=== PATIENT | female | born 1950 | race Caucasian/White ===

== ENCOUNTER 2017-11-30 10:11 | Observation (INO) ==
[2017-11-30] MEDS ORDERED: Sod Chloride 0.9% Inj 1,000 ML IV.CONT SCH (11:30)
--- NOTE | 2017-11-30 12:14 | ED ---
HPI General Chief Complaint: Neuro Symptoms/Deficit Stated Complaint: Left side of head complaint Time Seen by Provider: 11/30/17 11:24 Source: patient Mode of arrival: ambulatory Limitations: no limitations History of Present Illness HPI Narrative: Patient is a 67-year-old female that presents for the evaluation of left sided head pain and tingling. The patient states that the left side of her head began to ache and feel strange this past Thursday. The patient has a difficult time describing her symptoms. She states that the pain has been persistent the past 3 days. She states that the left side of her head began to tingle today and she now describes that she feels tingly and itchy all over. She states that nothing like this has ever happened to her before and she is concerned because her father from a stroke. Upon review of symptoms the patient reports fatigue which she states is due to her inability to sleep well this past week. She denies any other pain at this time. Pain is 4/10. Dull headache. Related Data Home Medications Medication Instructions Recorded Confirmed acyclovir 400 mg PO Q4H 11/30/17 11/30/17 hydrochlorothiazide 25 mg PO DAILY 11/30/17 11/30/17 losartan 25 mg PO DAILY 11/30/17 11/30/17 pantoprazole 40 mg PO DAILY 11/30/17 11/30/17 simvastatin 20 mg PO QPM 11/30/17 11/30/17 venlafaxine 75 mg PO DAILY 11/30/17 11/30/17 Allergies Allergy/AdvReac Type Severity Reaction Status Date / Time penicillin G Allergy Severe Rash Unverified 10/07/16 13:10 Sulfa (Sulfonamide Allergy Severe Rash Unverified 10/07/16 13:10 Antibiotics) Review of Systems ROS: all other systems reviewed are negative [facility] Medical History Medical History Dyslipidemia (Acute) Hypertension (Acute) Social History Social History Smoking Status: Unknown if ever smoked How Often Do You Have a Drink Containing Alcohol: Unable to Obtain Recent Travel in [facility] within the Last 8 Weeks: No Recent Out of Country Travel within the Last 8 Weeks: No Immunization History Tetanus Immunization: Unsure Exam Narrative Exam Narrative: GENERAL: SKIN: Warm and dry. HEAD: Atraumatic. Normocephalic. EYES: Pupils equal and round 4 mms reactive to light and accomodation. No scleral icterus. No injection or drainage. ENT: No nasal bleeding or discharge. Mucous membranes pink and moist. Tongue is midline. No uvula deviation. NECK: Trachea midline. No JVD. CARDIOVASCULAR: Regular rate and rhythm. RESPIRATORY: No accessory muscle use. Clear to auscultation. Breath sounds equal bilaterally. GASTROINTESTINAL: Abdomen soft, non-tender, nondistended. Hepatic and splenic margins not palpable. MUSCULOSKELETAL: Extremities without clubbing, cyanosis, or edema. No obvious deformities. Full ROM of the upper and lower extremities. Neurovascularly intact. 2+ pulses. 5/5 strength. NEUROLOGICAL: Awake and alert. No obvious cranial nerve deficits. Motor grossly within normal limits. Five out of 5 muscle strength in the arms and legs. Normal speech. PSYCHIATRIC: Appropriate mood and affect; insight and judgment normal. Course Initial Documented Vital Signs Temperature 97.8 F 11/30/17 11:07 Pulse Rate 73 11/30/17 11:07 Respiratory Rate 16 11/30/17 11:07 Blood Pressure 155/79 H 11/30/17 11:07 Pulse Oximetry 98 11/30/17 11:07 Last Documented Vital Signs Temperature 97.8 F 11/30/17 11:07 Pulse Rate 69 11/30/17 14:11 Respiratory Rate 20 11/30/17 14:11 Blood Pressure 144/67 H 11/30/17 14:11 Pulse Oximetry 99 11/30/17 14:11 Medical Decision Making TRUDI Attestation TRUDI supervised visit: Yes Attestation: I, Dr. Enriquez, have reviewed the advance practice practitioner's documentation and am in agreement, met with the patient face to face, made the diagnosis, and the medical decision making was done by me. *My assessment and Findings: Patient is a 67-year-old female who presented with complaint of left facial tingling with worsening numbness this morning. The tingling began approximately 3 days ago and has been worsening. She has no other neurologic deficits and would not be a candidate for TPA as the symptoms are very mild thus a stroke alert was not activated. She has been admitted to the hospital for further evaluation and management of TIA versus CVA with plan for MRI. MDM Narrative Medical decision making narrative: 67-year-old female that presents to the ED for evaluation of possible TIA versus CVA. Labs and imaging order. Symptoms have been ongoing since Thursday. My attending Dr Enriquez was made aware of findings and agrees with plan. Labs and imaging here showed no sign of acute disease at this time. Unclear etiology of the symptoms. Definetly concerning for CVA. Patient does have a significant history of CVA in the family. Condition at this time is admission for further evaluation of possible CVA versus TIA. Patient agrees with this. Case discussed with Dr. Leonel wilkins agrees admission to his service. My attending Dr. Enriquez evaluated the patient and agrees with plan. Medical Screen Exam Complete: Yes Emergency Medical Condition: Yes Differential Diagnosis Differential Diagnosis: CVA versus TIA versus ACS versus neuropathy Medical Records Medical records reviewed: Yes I reviewed the patient's medical records. Lab Data Lab results reviewed: Yes I reviewed the patient's lab results. Result diagrams: 11/30/17 11:45 11/30/17 11:45 Lab Results 11/30/17 11/30/17 11/30/17 Range/Units 11:45 11:45 11:45 WBC 4.3 (4.0-11.0) th/mm3 RBC 4.14 (4.00-5.30) mil/mm3 Hgb 13.7 (11.6-15.3) gm/dL Hct 40.5 (35.0-46.0) % MCV 97.9 (80.0-100.0) fL MCH 33.1 (27.0-34.0) pg MCHC 33.9 (32.0-36.0) % RDW 12.5 (11.6-17.2) % Plt Count 285 (150-450) th/mm3 MPV 7.6 (7.0-11.0) fL Neut % (Auto) 52.0 (16.0-70.0) % Lymph % (Auto) 38.4 (9.0-44.0) % [place] % (Auto) 8.2 H (0.0-8.0) % Eos % (Auto) 0.9 (0.0-4.0) % Baso % (Auto) 0.5 (0.0-2.0) % Neut # (Auto) 2.2 (1.8-7.7) th/mm3 Lymph # (Auto) 1.6 (1.0-4.8) th/mm3 [place] # (Auto) 0.4 (0.0-0.9) th/mm3 Eos # (Auto) 0.0 (0.0-0.4) th/mm3 Baso # (Auto) 0.0 (0.0-0.2) th/mm3 WBC Differential . Differential Comment Auto diff final PT 9.8 (9.8-11.6) sec INR 1.0 Ratio APTT 25.0 (24.3-30.1) sec Sodium 137 (136-145) meq/L Potassium 3.4 L (3.5-5.1) meq/L Chloride 98 (98-107) meq/L Carbon Dioxide 27.5 (21.0-32.0) meq/L Anion Gap 12 (5-15) meq/L BUN 17 (7-18) mg/dL Creatinine 0.69 (0.50-1.00) mg/dL Estimated GFR 85 L (>89) mL/min Random Glucose 86 (74-106) mg/dL Calcium 9.4 (8.5-10.1) mg/dL Total Creatine Kinase 65 (26-192) U/L Troponin I Less than 0.02 L (0.02-0.05) ng/mL Urine Color (Yellw/Straw) Urine Clarity (Clear) Urine pH (5.0-8.5) Ur Specific [place] (1.002-1.035) Urine Protein (Neg-Trace) mg/dL Urine Glucose (UA) (Negative) mg/dL Urine Ketones (Negative) mg/dL Urine Occult Blood (Negative) Urine Nitrate (Negative) Urine Bilirubin (Negative) Urine Urobilinogen (Less than 2) mg/dL Ur Leukocyte Esterase (Negative) Urine RBC (0-3) /hpf Urine WBC (0-5) /hpf Ur Squamous Epith Cells (0-5) /hpf Micro UA Comment Ur Microscopic Review Urine Culture Comments 11/30/17 Range/Units 11:45 WBC (4.0-11.0) th/mm3 RBC (4.00-5.30) mil/mm3 Hgb (11.6-15.3) gm/dL Hct (35.0-46.0) % MCV (80.0-100.0) fL MCH (27.0-34.0) pg MCHC (32.0-36.0) % RDW (11.6-17.2) % Plt Count (150-450) th/mm3 MPV (7.0-11.0) fL Neut % (Auto) (16.0-70.0) % Lymph % (Auto) (9.0-44.0) % [place] % (Auto) (0.0-8.0) % Eos % (Auto) (0.0-4.0) % Baso % (Auto) (0.0-2.0) % Neut # (Auto) (1.8-7.7) th/mm3 Lymph # (Auto) (1.0-4.8) th/mm3 [place] # (Auto) (0.0-0.9) th/mm3 Eos # (Auto) (0.0-0.4) th/mm3 Baso # (Auto) (0.0-0.2) th/mm3 WBC Differential Differential Comment PT (9.8-11.6) sec INR Ratio APTT (24.3-30.1) sec Sodium (136-145) meq/L Potassium (3.5-5.1) meq/L Chloride (98-107) meq/L Carbon Dioxide (21.0-32.0) meq/L Anion Gap (5-15) meq/L BUN (7-18) mg/dL Creatinine (0.50-1.00) mg/dL Estimated GFR (>89) mL/min Random Glucose (74-106) mg/dL Calcium (8.5-10.1) mg/dL Total Creatine Kinase (26-192) U/L Troponin I (0.02-0.05) ng/mL Urine Color Yellow (Yellw/Straw) Urine Clarity Clear (Clear) Urine pH 7.0 (5.0-8.5) Ur Specific [place] 1.012 (1.002-1.035) Urine Protein Negative (Neg-Trace) mg/dL Urine Glucose (UA) Negative (Negative) mg/dL Urine Ketones Negative (Negative) mg/dL Urine Occult Blood Negative (Negative) Urine Nitrate Negative (Negative) Urine Bilirubin Negative (Negative) Urine Urobilinogen Less than 2 (Less than 2) mg/dL Ur Leukocyte Esterase Negative (Negative) Urine RBC Less than 1 (0-3) /hpf Urine WBC Less than 1 (0-5) /hpf Ur Squamous Epith Cells <1 (0-5) /hpf Micro UA Comment Culture not ind Ur Microscopic Review Not Reportable Urine Culture Comments Culture not ind Imaging Data Attestation: I personally reviewed and interpreted this imaging study as follows : Radiologist's impression: Head CT 11/30/17 11:23 CONCLUSION: 1. Negative CT Head non contrast. . ECG Data Attestation: I personally reviewed and interpreted this ECG as follows: Interpretation: EKG shows sinus rhythm with no sign of acute ischemia and arrhythmia read by me and attending. Discharge Plan Discharge Disposition Patient Disposition: 30 Still Patient Discharge Details Diagnosis: Acute CVA (cerebrovascular accident), Neuropathy Physicians Team ED Provider: Alice Enriquez ED Midlevel Provider: Sandeep Muñoz Primary Care Provider: Pual Cohen Attending Provider: Maribeth Worthy Status ED Status: Left Department Discharge Information Discharge Date/Time: 11/30/17 14:38
[2017-11-30 12:19] LABS: Bilirubin,Urine Negative (Negative); Clarity,Urine Clear (Clear); Color,Urine Yellow (Yellw/Straw); Glucose,Urine (UA) Negative (Negative); Leukocyte Esterase,Urine Negative (Negative); Nitrite,Urine Negative (Negative); Specific Gravity,Urine 1.012 (1.002-1.035); Squamous Epithelial Cell,Urine <1 /hpf (0-5)
[2017-11-30 12:25] LABS: Baso % (Auto) 0.5 % (0.0-2.0); Eos % (Auto) 0.9 % (0.0-4.0); Hematocrit 40.5 % (35.0-46.0); Hemoglobin 13.7 gm/dL (11.6-15.3); Lymph # (Auto) 1.6 th/mm3 (1.0-4.8); Lymph % (Auto) 38.4 % (9.0-44.0); Mean Corpuscular HGB Conc 33.9 % (32.0-36.0); Mean Corpuscular Hemoglobin 33.1 pg (27.0-34.0); Mean Corpuscular Volume 97.9 fL (80.0-100.0); Mean Platelet Volume 7.6 fL (7.0-11.0); Mono # (Auto) 0.4 th/mm3 (0.0-0.9); Mono % (Auto) 8.2 % (0.0-8.0); Neut # (Auto) 2.2 th/mm3 (1.8-7.7); Platelet Count 285 th/mm3 (150-450); Red Blood Count 4.14 mil/mm3 (4.00-5.30); Red Cell Distribution Width 12.5 % (11.6-17.2); White Blood Count 4.3 th/mm3 (4.0-11.0)
[2017-11-30 12:40] LABS: Anion Gap 12 meq/L (5-15); Blood Urea Nitrogen 17 mg/dL (7-18); Calcium 9.4 mg/dL (8.5-10.1); Carbon Dioxide 27.5 meq/L (21.0-32.0); Chloride 98 meq/L (98-107); Glomerular Filtration Rate 85 mL/min (>89); Glucose,Random 86 mg/dL (74-106); Potassium 3.4 meq/L (3.5-5.1); Sodium 137 meq/L (136-145)
[2017-11-30 12:43] LABS: Prothrombin Time 9.8 sec (9.8-11.6)
[2017-11-30 12:46] LABS: Creatine Kinase 65 U/L (26-192)
--- NOTE | 2017-11-30 13:05 | CT ---
EXAM DATE: 11/30/2017 11:28 AM EDT AGE/SEX: 67 years / Female INDICATIONS: Left sided head numbness and tingling. CLINICAL DATA: This is the patient's initial encounter. Patient reports that signs and symptoms have been present for 3 days and indicates a pain score of 1/10. MEDICAL/SURGICAL HISTORY: None. None. RADIATION DOSE: 34.87 CTDI (mGy) COMPARISON: None. TECHNIQUE: CT of the head without contrast. Using automated exposure control and adjustment of the mA and/or kV according to patient size, radiation dose was kept as low as reasonably achievable to ob tain optimal diagnostic quality images. DICOM format image data is available electronically for revi ew and comparison. FINDINGS: Cerebrum: The ventricles are normal for age. No evidence of midline shift, mass lesion, hemorrhage or acute infarction. No extraaxial fluid collections are seen. Posterior Fossa: The cerebellum and brainstem are intact. The 4th ventricle is midline. The cerebe llopontine angle is unremarkable. Extracranial: The visualized portion of the orbits is intact. Skull: The calvaria is intact. No evidence of skull fracture. CONCLUSION: 1. Negative CT Head non contrast. . Electronically signed by: Faraz Goff MD 11/30/2017 1:04 PM EDT
--- NOTE | 2017-11-30 14:27 | P.HPIM ---
History of Present Illness Primary Care Physician: Paul Cohen Chief Complaint: headache History of Present Illness: patient is a 67 y/o female with history of hypertension and dyslipidemia, pernicious anemia, presented to ER with tingling of the left head. she says that she was at her usual state of health till three days ago when she started to have some ' strange feeling over the left head'. she says that it ' kept coming back over the weekend'. this morning she started to have some tingling of the left head. she denies any slurred speech and doesn't report any focal weakness or vision changes. she doesn't recall any similar episodes in the past. Review of Systems All other systems reviewed negative except as stated in HPI PMFSH - History History Provided By: Patient - Medical History Medical History: Medical History (Last Updated 11/30/17 @ 14:22 by Maribeth Worthy MD) Dyslipidemia Hypertension - Surgical History Surgical History: Surgical History (Last Reviewed 11/30/17 @ 14:23 by Maribeth Worthy MD) Hip joint replacement status - Family History Family History: Family History (Last Reviewed 11/30/17 @ 14:23 by Maribeth Worthy MD) Other CVA (cerebral vascular accident) - Tobacco History Smoking Status: Unknown if ever smoked - Alcohol History How Often Do You Have a Drink Containing Alcohol: Unable to Obtain - Travel History Recent Travel in the [place] Within the Last 8 Weeks: No Recent Travel Out of the Country Within the Last 8 Weeks: No - Immunization History Tetanus Immunization: Unsure Medications and Allergies Active Medications: Active Medications Enoxaparin Sodium (Lovenox Inj) 40 mg SQ DAILY [facility] Sodium Chloride (Ns Inj) 1,000 mls @ 70 mls/hr IV.CONT .[id number] SUBHA Stop: 12/01/17 01:47 Last Admin: 11/30/17 11:57 Dose: 70 mls/hr Sodium Chloride (Ns Flush) 2 ml IV.FLUSH PRN PRN PRN Reason: FLUSH AFTER USING IV ACCESS Allergies Allergy/AdvReac Type Severity Reaction Status Date / Time penicillin G Allergy Severe Rash Unverified 10/07/16 13:10 Sulfa (Sulfonamide Allergy Severe Rash Unverified 10/07/16 13:10 Antibiotics) Home Medications Medication Instructions Recorded Confirmed Type acyclovir 400 mg PO Q4H 11/30/17 11/30/17 History hydrochlorothiazide 25 mg PO DAILY 11/30/17 11/30/17 History losartan 25 mg PO DAILY 11/30/17 11/30/17 History pantoprazole 40 mg PO DAILY 11/30/17 11/30/17 History simvastatin 20 mg PO QPM 11/30/17 11/30/17 History venlafaxine 150 mg PO DAILY 11/30/17 12/01/17 History Exam Vital signs: Vital Signs 11/30/17 11:07 11/30/17 12:52 11/30/17 14:11 Temperature 97.8 F Pulse Rate 73 74 69 Respiratory Rate 16 20 20 Blood Pressure 155/79 H 169/69 H 144/67 H Pulse Oximetry 98 99 99 Intake & Output 11/29/17 11/30/17 11/30/17 18:59 06:59 18:59 Weight 53.524 kg - Constitutional no acute distress - Routine HEENT Exam Head: Present: atraumatic Eye: Present: PERRL - Routine Neck Exam Present: supple - Routine Respiratory Exam Present: CTA bilaterally - Routine Cardiovascular Exam Present: RRR - Routine Abdominal Exam Present: soft - Routine Extremities Exam Comments: no pedal edema. - Routine Neurological Exam Present: alert, oriented X3 Results - Labs CBC & Chem 7: 11/30/17 11:45 11/30/17 11:45 Labs: Short CBC 11/30/17 Range/Units 11:45 WBC 4.3 (4.0-11.0) th/mm3 Hgb 13.7 (11.6-15.3) gm/dL Hct 40.5 (35.0-46.0) % Plt Count 285 (150-450) th/mm3 BMP 11/30/17 11:45 Sodium 137 Potassium 3.4 L Chloride 98 Carbon Dioxide 27.5 BUN 17 Creatinine 0.69 Calcium 9.4 Cardiac Enzymes 11/30/17 Range/Units 11:45 Total Creatine Kinase 65 (26-192) U/L Troponin I Less than 0.02 L (0.02-0.05) ng/mL Urine 11/30/17 Range/Units 11:45 Urine Color Yellow (Yellw/Straw) Urine Clarity Clear (Clear) Urine pH 7.0 (5.0-8.5) Ur Specific [place] 1.012 (1.002-1.035) Urine Protein Negative (Neg-Trace) mg/dL Urine Glucose (UA) Negative (Negative) mg/dL - Imaging Impressions Head CT 11/30/17 11:23 CONCLUSION: 1. Negative CT Head non contrast. . Caprini VTE Risk Assessment Caprini VTE Risk Assessment: Moderate/High Risk (score >= 2) Caprini Risk Assessment Model: Point Value = 1 Point Value = 2 Point Value = 3 Point Value = 5 Age 41-60 Minor surgery BMI > 25 kg/m2 Swollen legs Varicose veins or History of unexplained or recurrent spontaneous Oral contraceptives or hormone replacement Sepsis (< 1 month) Serious lung disease, including pneumonia (< 1 month) Abnormal pulmonary function Acute myocardial infarction Congestive heart failure (< 1 month) History of inflammatory bowel disease Medical patient at bed rest Age 61-74 Arthroscopic surgery Major open surgery (> 45 min) Laparoscopic surgery (> 45 min) Malignancy Confined to bed (> 72 hours) Immobilizing plaster cast Central venous access Age >= 75 History of VTE Family history of VTE Factor V Leiden Prothrombin [id number] Lupus anticoagulant Anticardiolipin antibodies Elevated serum homocysteine Heparin-induced thrombocytopenia Other congenital or acquired thrombophilia Stroke (< 1 month) Elective arthroplasty Hip, pelvis, or leg fracture Acute spinal cord injury (< 1 month) Prophylaxis Regimen: Total Risk Factor Score Risk Level Prophylaxis Regimen 0-1 Low Early ambulation 2 Moderate Order ONE of the following: *Sequential Compression Device (SCD) *Heparin 5000 units SQ BID 3-4 Higher Order ONE of the following medications: *Heparin 5000 units SQ TID *Enoxaparin/Lovenox 40 mg SQ daily (WT < 150 kg, CrCl > 30 mL/min) *Enoxaparin/Lovenox 30 mg SQ daily (WT < 150 kg, CrCl > 10-29 mL/min) *Enoxaparin/Lovenox 30 mg SQ BID (WT < 150 kg, CrCl > 30 mL/min) AND/OR *Sequential Compression Device (SCD) 5 or more Highest Order ONE of the following medications: *Heparin 5000 units SQ TID (Preferred with Epidurals) *Enoxaparin/Lovenox 40 mg SQ daily (WT < 150 kg, CrCl > 30 mL/min) *Enoxaparin/Lovenox 30 mg SQ daily (WT < 150 kg, CrCl > 10-29 mL/min) *Enoxaparin/Lovenox 30 mg SQ BID (WT < 150 kg, CrCl > 30 mL/min) AND *Sequential Compression Device (SCD) Assessment and Plan - Plan A/P - left sided headache/tingling with family history of CVA . CT head with no acute abnormality- EKG with sinus rhythm with no acute ST-T changes continue with neuro-checks- start on aspirin- check MRI/MRA head along with carotid doppler and echo- -hypertension; will resume home meds if MRI brain negative for acute stroke. -dyslipidemia; resume statin. -DVT prophylaxis with subq Lovenox Discussed Condition With: ER mid-level and the patient. Discharge Planning: home- pending the w/u.
--- NOTE | 2017-11-30 16:19 | MR ---
EXAM DATE: 11/30/2017 2:48 PM EDT AGE/SEX: 67 years / Female INDICATIONS: CVA. Left sided pain CLINICAL DATA: This is the patient's initial encounter. Patient reports that signs and symptoms have been present for 2 days and indicates a pain score of 3/10. MEDICAL/SURGICAL HISTORY: Hypertension. Skin ca. section. Bilateral hip replacements. COMPARISON: . TECHNIQUE: Multiplanar, multisequence examination of the brain was performed without contrast. FINDINGS: Cerebrum: The ventricles are normal for age. No evidence of midline shift, mass lesion, hemorrhage or acute infarction. No extraaxial fluid collections are seen. The pituitary gland and suprasellar cistern are normal in configuration. White Matter: Minimal, predominantly periventricular white matter changes. Posterior Fossa: The cerebellum and brainstem are intact. The 4th ventricle is midline. The cerebel lopontine angle is unremarkable. The cerebellar tonsils are normal in position. Diffusion Imaging: No focal areas of restricted diffusion are seen. No evidence of acute infarction . Extracranial: The visualized portions of the orbits and paranasal sinuses are unremarkable. CONCLUSION: 1. Minimal, chronic white matter changes. 2. Otherwise negative. Electronically signed by: Gerald Rosenberg MD 11/30/2017 4:18 PM EDT
--- NOTE | 2017-11-30 16:32 | MR ---
EXAM DATE: 11/30/2017 2:48 PM EDT AGE/SEX: 67 years / Female INDICATIONS: CVA. Left sided pain. CLINICAL DATA: This is the patient's initial encounter. Patient reports that signs and symptoms have been present for 3 days and indicates a pain score of 2/10. MEDICAL/SURGICAL HISTORY: Hypertension. Skin ca. section. Bilateral hip replacements. COMPARISON: MRI of the brain 11/30/2017. TECHNIQUE: 3D [id number] MRA was performed. Source images, multiplanar STS MIP, and 3D volum e MIP reconstructions were reviewed. FINDINGS: There is excellent visualization of the major intracranial arteries out to the second-order branch ve ssels. Hypoplastic left A1 segment with a dominant right A1 segment and patent anterior communicating artery. There is no evidence for aneurysm, vessel truncation or stenosis, and no evidence for vascul ar malformation. CONCLUSION: 1. No acute abnormality. Electronically signed by: Faraz Goff MD 11/30/2017 4:31 PM EDT
--- NOTE | 2017-11-30 16:40 | US ---
EXAM DATE: 11/30/2017 12:00 AM EDT AGE/SEX: 67 years / Female INDICATIONS: Transient ischemic attack. CLINICAL DATA: This is the patient's initial encounter. Patient reports that signs and symptoms have been present for 3 days and indicates a pain score of 0/10. MEDICAL/SURGICAL HISTORY: Hypertension. . Hip replacement. COMPARISON: None . VELOCITY PARAMETERS: ICA/CCA Ratio: Right 0.94 , Left 1.13 ICA: Right 86 cm/sec, Left 109 cm/sec CCA: Right 92 cm/sec, Left 97 cm/sec ECA: Right 86 cm/sec, Left 63 cm/sec Vertebral: Right 52 cm/sec antegrade, Left 54 cm/sec antegrade FINDINGS: Right Carotid: Minimal plaque involving the right ICA origin. No luminal narrowing utilizing graysca le analysis..The waveforms are within normal limits. Left Carotid: No significant plaque is visualized. The waveforms are within normal limits. Other: None. CONCLUSION: Patent carotid arteries bilaterally. Antegrade flow involving both vertebral arteries. Electronically signed by: Faraz Goff MD 11/30/2017 4:38 PM EDT
[2017-11-30] MEDS: Sod Chloride 0.9% Inj 1,000 ML IV.CONT SCH ×2 (17:01→23:33)
[2017-12-01] MEDS ORDERED: Enoxaparin Inj 40 MG/0.4 ML Syringe SQ SCH (09:00)
--- NOTE | 2017-12-01 09:48 | P.PNIM ---
Subjective Interval history: in no acute distress. she says that 'she's back to normal'. with no new complaints. Physical Exam Vital signs: Vital Signs 11/30/17 11:07 11/30/17 12:52 11/30/17 14:11 Temperature 97.8 F Pulse Rate 73 74 69 Respiratory Rate 16 20 20 Blood Pressure 155/79 H 169/69 H 144/67 H Pulse Oximetry 98 99 99 11/30/17 16:00 11/30/17 17:14 11/30/17 20:00 Temperature 97.9 F 98.2 F Pulse Rate 71 75 76 Respiratory Rate 16 17 Blood Pressure 136/77 126/66 Pulse Oximetry 98 98 12/01/17 00:00 12/01/17 03:40 12/01/17 08:00 Temperature 97.7 F 98 F 98.2 F Pulse Rate 69 63 73 Respiratory Rate 17 17 16 Blood Pressure 115/66 105/66 131/67 Pulse Oximetry 96 97 96 Intake & Output 11/30/17 12/01/17 12/01/17 18:59 06:59 18:59 Intake Total 1000 / 1000 1240 / 1240 Balance 1000 / 1000 1240 / 1240 Weight 53.524 kg 53.524 kg Intake: IV 1000 / 1000 1000 / 1000 NS Inj 1,000 ML @ 100 mls/hr IV 1000 / 1000 1000 / 1000 .CONT .Q10H SUBHA Rx#:[id number] Oral 240 / 240 Other: # Voids 2 - Constitutional no acute distress - Routine Respiratory Exam Present: CTA bilaterally - Routine Cardiovascular Exam Present: RRR - Routine Abdominal Exam Present: soft - Routine Extremities Exam Comments: no pedal edema. - Routine Neurological Exam Present: alert, oriented X3 Results - Labs CBC & Chem 7: 11/30/17 11:45 11/30/17 11:45 Laboratory Results - last 24 hr 11/30/17 11/30/17 11/30/17 11:45 11:45 11:45 WBC 4.3 RBC 4.14 Hgb 13.7 Hct 40.5 MCV 97.9 MCH 33.1 MCHC 33.9 RDW 12.5 Plt Count 285 MPV 7.6 Neut % (Auto) 52.0 Lymph % (Auto) 38.4 Treasure % (Auto) 8.2 H Eos % (Auto) 0.9 Baso % (Auto) 0.5 Neut # (Auto) 2.2 Lymph # (Auto) 1.6 Treasure # (Auto) 0.4 Eos # (Auto) 0.0 Baso # (Auto) 0.0 WBC Differential . Differential Comment Auto diff final PT 9.8 INR 1.0 APTT 25.0 Sodium 137 Potassium 3.4 L Chloride 98 Carbon Dioxide 27.5 Anion Gap 12 BUN 17 Creatinine 0.69 Estimated GFR 85 L POC Glucose Random Glucose 86 Calcium 9.4 Total Creatine Kinase 65 Troponin I Less than 0.02 L Urine Color Urine Clarity Urine pH Ur Specific [place] Urine Protein Urine Glucose (UA) Urine Ketones Urine Occult Blood Urine Nitrate Urine Bilirubin Urine Urobilinogen Ur Leukocyte Esterase Urine RBC Urine WBC Ur Squamous Epith Cells Micro UA Comment Ur Microscopic Review Urine Culture Comments 11/30/17 11/30/17 11:45 17:03 WBC RBC Hgb Hct MCV MCH MCHC RDW Plt Count MPV Neut % (Auto) Lymph % (Auto) Treasure % (Auto) Eos % (Auto) Baso % (Auto) Neut # (Auto) Lymph # (Auto) Treasure # (Auto) Eos # (Auto) Baso # (Auto) WBC Differential Differential Comment PT INR APTT Sodium Potassium Chloride Carbon Dioxide Anion Gap BUN Creatinine Estimated GFR POC Glucose 85 Random Glucose Calcium Total Creatine Kinase Troponin I Urine Color Yellow Urine Clarity Clear Urine pH 7.0 Ur Specific [place] 1.012 Urine Protein Negative Urine Glucose (UA) Negative Urine Ketones Negative Urine Occult Blood Negative Urine Nitrate Negative Urine Bilirubin Negative Urine Urobilinogen Less than 2 Ur Leukocyte Esterase Negative Urine RBC Less than 1 Urine WBC Less than 1 Ur Squamous Epith Cells <1 Micro UA Comment Culture not ind Ur Microscopic Review Not Reportable Urine Culture Comments Culture not ind - Imaging Impressions Carotid Doppler Study 11/30/17 00:00 CONCLUSION: Patent carotid arteries bilaterally. Antegrade flow involving both vertebral arteries. Head MRI 11/30/17 00:00 CONCLUSION: 1. Minimal, chronic white matter changes. 2. Otherwise negative. Head MRA 11/30/17 00:00 CONCLUSION: 1. No acute abnormality. Head CT 11/30/17 11:23 CONCLUSION: 1. Negative CT Head non contrast. . Assessment and Plan - Plan A/P - left sided headache/tingling; now has resolved. with family history of CVA . imaging studies including CT head, MRI/MRA brain and cardotid doppler negative for acute abnormality. EKG with sinus rhythm with no acute ST-T changes echo pending. -hypertension; will resume home meds upon discharge. -dyslipidemia; resumed statin. -DVT prophylaxis with subq Lovenox Discharge Planning: dc home today- if echo negative. see med list. f/u; pcp.
[2017-12-01] MEDS ORDERED: Venlafaxine XR 75 MG Capsule PO SCH (11:00)
[2017-12-01 11:44] VITALS: BP 132/85; PULSE 71; RESP 18; TEMP 97.9; O2SAT 99
[2017-12-01] MEDS ORDERED: Venlafaxine XR 75 MG Capsule PO ONE (12:17)
--- NOTE | 2017-12-01 13:20 | ECHRPT ---
Indication: cva/tia CONCLUSIONS Normal left ventricular size. Wall thickness is normal. The left ventricular systolic function is normal with an estimated ejection fraction in the range of 55-60%. Atrial septal aneurysm is present (benign finding). No mitral valve regurgitation. Mild mitral annular thickening. Mild aortic valve sclerosis is present. Mild aortic valve regurgitation (central). BP: / HR: Rhythm: MEASUREMENTS (Male / Female) Normal Values Technical Quality: 2D ECHO LV Diastolic Diameter PLAX 4.4 cm 4.2 - 5.9 / 3.9 - 5.3 cm LV Systolic Diameter PLAX 3.1 cm IVS Diastolic Thickness 0.9 cm 0.6 - 1.0 / 0.6 - 0.9 cm LVPW Diastolic Thickness 0.6 cm 0.6 - 1.0 / 0.6 - 0.9 cm LV Relative Wall Thickness 0.3 RV Internal Dim ED PLAX 2.1 cm LA Systolic Diameter LX 3.0 cm 3.0 - 4.0 / 2.7 - 3.8 cm DOPPLER AI Peak Velocity 411.0 cm/s AI Peak Gradient 67.6 mmHg AI Pressure Half Time 608.0 ms Mitral E Point Velocity 64.7 cm/s Mitral A Point Velocity 71.8 cm/s Mitral E to A Ratio 0.9 TR Peak Velocity 254.0 cm/s TR Peak Gradient 25.8 mmHg Right Atrial Pressure 10.0 mmHg Pulmonary Artery Systolic Pressu 35.8 mmHg Right Ventricular Systolic Press 35.8 mmHg FINDINGS LEFT VENTRICLE Normal left ventricular size. Wall thickness is normal. The left ventricular systolic function is normal with an estimated ejection fraction in the range of 55-60%. RIGHT VENTRICLE Normal right ventricular size and systolic function. LEFT ATRIUM The left atrial size is normal. RIGHT ATRIUM The right atrial size is normal. ATRIAL SEPTUM Atrial septal aneurysm is present (benign finding). AORTA The aortic root and proximal ascending aorta are normal in size on limited imaging. MITRAL VALVE No mitral valve regurgitation. Mild mitral annular thickening. AORTIC VALVE Mild aortic valve sclerosis is present. Mild aortic valve regurgitation (central). TRICUSPID VALVE Structurally normal tricuspid valve. No tricuspid valve stenosis or regurgitation. PULMONARY VALVE No pulmonary valve regurgitation or stenosis. VESSELS The inferior vena cava is normal in size. PERICARDIUM No pericardial effusion. Camden Infante MD (Electronically Signed) Final Date:01 December 2017 13:19
--- NOTE | 2017-12-01 14:44 | ECG ---
Date Performed: 11/30/2017 Time Performed: 12:37:34 PTAGE: 67 years EKG: Sinus rhythm NORMAL ECG NO PREVIOUS TRACING DOCTOR: Kip Siddiqi Interpretating Date/Time 12/01/2017 14:43:02
[2017-12-01] MEDS: Sod Chloride 0.9% Inj 1,000 ML IV.CONT SCH (15:46)
== END 2017-12-01 16:23 | disposition home or self-care (01) ==
LOC: NEDA 10:11 → NEPE 10:11 → NEDA 14:38 → NEPHCDU 14:39 → NEPGCP 14:40
PROVIDERS: ADMIT Internal Medicine; ATTEND Internal Medicine